=== PATIENT | female | born 1980 | race Caucasian/White ===

== ENCOUNTER → 2020-10-16 | Outpatient (CLI) | payer BC ==
[2015-07-21 12:45] VITALS: BP 148/104
[~2020-10-16] MED LIST: ADAL20KI SQ; AZIT250T PO; ETON1VAG VG; HYDR-3165 PO; LEVO112T4 PO; MERC50TA PO; ONDA8TAB12 PO; PRED20TA PO
--- NOTE | 2020-10-16 08:53 | RAD ---
EXAM: Thyroid sonogram. HISTORY: Elevated TSH. TECHNIQUE: Sonographic imaging of the thyroid was performed. COMPARISON: None. FINDINGS: The right thyroid lobe measures 3.6 x 1.1 x 0.6 cm. The left thyroid lobe measures 3.2 x 0. 9 x 0.7 cm. The thyroid isthmus measures 2 mm. The thyroid parenchyma is heterogeneous. There is a so lid isoechoic nodule with hypoechoic rim within the mid right thyroid lobe measuring 9 x 6 x 6 mm. Th ere is a similar-appearing isoechoic nodule with hypoechoic rim along the inferior right thyroid lobe . The thyroid isthmus measuring 10 x 9 x 5 mm. There is a coarse calcification within the left thyroi d lobe. No additional discrete nodule seen. IMPRESSION: 1. 9 mm and 10 mm solid nodules within the right thyroid lobe. TI-RADS Category 3. These are likely b enign based on size and sonographic features. Sonographic follow-up can be performed in one year if t here is clinical concern. 2. Diffusely heterogeneous thyroid parenchyma. This can be seen as a sequela of thyroiditis. Electronically signed by: Joyce Mishra MD (10/16/2020 8:50 AM) [id number]
== END ==
LOC: US 07:46
PROVIDERS: ATTEND Physician Assistant Medical
DX: E04.2 Nontoxic multinodular goiter (principal); R79.89 Other specified abnormal findings of blood chemistry
CPT/HCPCS: 76536